=== PATIENT | female | born 1970 | race Caucasian/White ===

== ENCOUNTER 2019-07-04 01:26 | Emergency (ER) | payer OTHER ==
[~2019-07-04] VITALS: Ht 162.6 cm; Wt 95.3 kg
[2019-07-04] MEDS ORDERED: LAMOTRIGINE250 MG PO (01:42)
[2019-07-04] MEDS ORDERED: KEPPRA XR750 MG PO (01:42)
[2019-07-04] MEDS ORDERED: SERTRALINE HCL100 MG PO (01:43)
[2019-07-04] MEDS ORDERED: AUGMENTIN 875-1 EACH PO (02:48)
[2019-07-04 03:30] VITALS: BP 179/97
== END 2019-07-04 03:31 | disposition home or self-care (01) ==
LOC: M.ERS 01:26
DX: S51.812A Laceration without foreign body of left forearm, initial encounter (principal); Z88.8 Allergy status to other drugs, medicaments and biological substances; Z98.890 Other specified postprocedural states; W54.0XXA Bitten by dog, initial encounter; Y93.89 Activity, other specified; Y92.89 Other specified places as the place of occurrence of the external cause; Y99.8 Other external cause status